=== PATIENT | male | born 1965 | race Asian ===

== ENCOUNTER 2024-09-04 10:51 | Outpatient (AMB) | payer MEDICAID, SELFPAY ==
--- NOTE | 2024-09-04 10:55 | A.OFFVIS_ITS ---
Intake Visit Reasons: right renal cysts Intake Note: New Patient presents for initial visit for right renal cysts Urology Medications: none Blood Thinner: none Hosted Services Analyst Required: Yes Hosted Services Analyst Services: Hosted Services Analyst Offered & Declined Accompanied by: Unknown Allergies No Known Allergies Allergy (Verified 09/04/24 11:28) Medication List - Last Reconciled 09/04/24 by ZELALEM Benton amlodipine 10 mg PO DAILY levothyroxine 50 mcg PO DAILY lisinopril 5 mg PO DAILY HPI Comments Details: bAel is a very pleasant 58-year-old male patient of Dr. Justin was accompanied by his daughter T at today's office visit. He is Rossy speaking data technical lead offered however he declines and would like daughter to provide translation during today's office visit. He has a past medical history of hypothyroidism, tremors, renal cysts, hepatic steatosis, GERD, hypertension, vitamin-D deficiency, alcohol abuse, and chews tobacco. He presents to the office today as a new patient for renal cysts. In discussion with patient's daughter today who provides much of today's history she states he recently had a ultrasound that noted to right renal cysts and PCP recommended urology referral for further assessment evaluation. Rayus report reviewed with the patient and his daughter today. Two right renal cysts. One of the cyst is complex with thick internal septations MRI and or CT renal mass protocol is recommended per radiology report. He reports having had ultrasound due to elevated blood work. He does report noting ongoing back pain. No CVA tenderness noted on exam today. He otherwise denies any bothersome urinary issues. He reports be happy with current voiding parameters. Unable to obtain urine for urinalysis today as patient was unable to void. When asked he denies urinary urgency, urinary frequency, incontinence, nocturia, hematuria, dysuria, foul smelling urine, changes to urinary stream, flank pain, fever, and or chills. He otherwise offers no other issues or concerns at this time. [facility] Medical History Positive QuantiFERON-TB Gold test Other specified hypothyroidism Coarse tremors Renal cyst Hepatitis B core antibody positive Hepatic steatosis GERD (gastroesophageal reflux disease) Hypertension Immune to varicella Vitamin D deficiency Chews tobacco Alcohol abuse Review of Systems Const All systems reviewed & are unremarkable except as noted in HPI and below Physical Exam Const General: cooperative, healthy appearing, comfortable, no acute distress, well developed, alert and awake Orientation/consciousness: patient oriented x3 Limitations: no limitations HEENT Head: Yes normal to inspection, Yes normocephalic and Yes atraumatic Ears: hearing grossly normal bilaterally Eyes General: appearance normal, both eyes and all related structures Neck Neck: Yes normal visual inspection and Yes trachea midline Chest Chest palpation & inspection: normal inspection of the chest Resp Effort & Inspection: normal respiratory effort and able to speak in complete sentences Cardio Rate: regular rate GI Inspection: Yes normal to inspection General: Yes no CVA tenderness Back/Spine/Pelvis Back: no CVA tenderness Skin General skin exam: no rashes or lesions noted Neuro General: patient oriented x3 Extrem General: Yes normal to inspection Psych Appearance: grossly normal and well kempt Mental Status: mental status grossly normal Speech and movement: Normal speech and movement present and Clear speech present Affect: normal affect Attitude: cooperative Thought process: Normal thought process present Thought content: Normal thought content present Insight: Fair insight present (Psych) Judgement: Fair judgement present (Psych) Assessment & Plan Assessment & Plan (1) Complex renal cyst: Code(s): N28.1 - Cyst of kidney, acquired Category: Medical Plan Unable to obtain urine for urinalysis as patient unable to void. Recent ultrasound results reviewed with the patient today; as noted above. Discussed at length potential causes of renal cysts as well as classifications of renal cysts. Patient otherwise denies any bothersome urinary issues. He reports be happy with current voiding parameters. Discussed obtaining further imaging for further assessment evaluation. Will obtain MRI renal mass protocol. Will obtain PSA for surveillance monitoring. Follow-up in 1-3 months with imaging and lab to be completed prior; or sooner with any issues, concerns, and or questions. Orders: Orders AMB Urinalysis Automated Today Z13.9 - Encounter for screening, unspecified MR kidney wo/w con Today N28.1 - Cyst of kidney, acquired Prostate Specific Antigen Today N40.0 - Benign prostatic hyperplasia without lower urinary tract symptoms Patient Instructions: The patient had an opportunity to ask questions regarding the treatment plan. All questions were answered. Physical exam, labs, and imaging were discussed and reviewed in detail. As well as risks, benefits, and discussion of treatment choices. No major barriers to understanding were identified. The patient expressed understanding and agreement with the above treatment plan. The patient was made aware they should contact our office by phone for worsening of their current condition, the appearance of new symptoms, or with any questions or concerns. Compliance is encouraged with any medications and follow up testing that is ordered. It is a privilege to be allowed the opportunity to participate in? your urological care.? Again, if you have any questions or concerns If you have any questions or concerns please do not hesitate to contact me. The office is [phone]. This note is constructed using voice recognition software. While every effort has been made to ensure accuracy fence supervisor errors may have been included. Yours sincerely, ZELALEM Benton Coding Level of Care Code New Pt Level 3 (49844) Diagnoses Complex renal cyst N28.1
== END 2024-09-04 11:21 | disposition home or self-care (01) ==
PROVIDERS: PCP Internal Medicine; Visit Provider Nurse Practitioner Family
DX: N28.1 Cyst of kidney, acquired (principal)
CPT/HCPCS: 99203

== ENCOUNTER → 2024-09-04 10:51 | Outpatient (BNVA) | payer MEDICAID, SELFPAY | PROVIDERS: PCP Internal Medicine; Visit Provider Nurse Practitioner Family | DX: N28.1 Cyst of kidney, acquired (principal) | CPT/HCPCS: 99212 ==

== ENCOUNTER 2024-10-27 16:00 | Outpatient (REF) | payer MEDICAID, SELFPAY ==
--- NOTE | ~2024-10-27 | MR_ITS ---
EXAMINATION: MR ABDOMEN WITHOUT AND WITH CONTRAST CLINICAL INFORMATION: Complex renal cyst. COMPARISON: None available. TECHNIQUE: MR abdomen was performed without and with use of 4.5 mL intravenous not specified gadolinium based contrast. Postcontrast images are performed in multiphase dynamic sequences. Imaging was performed in 3 planes. No reported immediate complications. FINDINGS: Submitted for interpretation on November 30, 2024. Limited by patient's breathing motion artifact. LIVER, GALLBLADDER, AND BILIARY TREE: Liver measures 18 cm. There are few scattered less than 10 mm nonenhancing hyperintense T2 signal in the peripheral of the right hepatic lobe. There is layering isointense T2 nonenhancing signal within the gallbladder lumen. There is no pericholecystic fluid collection or gallbladder wall thickening. There is a focal narrowing at the distal common bile duct measuring 3 mm. No intrahepatic or extrahepatic biliary ductal dilatation. The common bile duct measures 4 mm. PANCREAS: No focal mass. No peripancreatic fluid collection. No main pancreatic ductal dilatation. SPLEEN: 8 cm. No focal mass. ADRENAL GLANDS: No nodular lesion. KIDNEYS AND URETERS: Right kidney: There is a 21 mm, thin septated, nonenhancing, fluid signal characteristic lesion in the medial midportion. There is a 26 mm no septated, nonenhancing fluid signal characteristic lesion in an exophytic anterior lateral aspect of the midportion. There are other few scattered, nonenhancing less than 10 mm fluid signal characteristics and the lower pole. No hydronephrosis. No enhancing lesion in the pararenal compartment. Left kidney: There is a focal, 6 mm hypointense T2 and intrinsic hyperintense T1 nonenhancing lesion in the lateral midportion. There is a 13 mm nonenhancing, no septated fluid signal characteristic lesion in the anterior midportion. There is a 10 mm nonenhancing hyperintense T2 lesion in the anterior upper pole. There are few scattered less than 10 mm fluid signal characteristic lesions. No hydronephrosis. No enhancing mass in the pararenal compartment. GASTROINTESTINAL TRACT: No intestinal obstruction pattern. No ascites. ABDOMINAL WALL: Diastases abdominal rectus muscles in the umbilical region. LYMPH NODES: No lymphadenopathy, retroperitoneum or mesentery. VASCULAR: No aneurysm or dissection, abdominal aorta. OSSEOUS STRUCTURES: Multilevel thoracolumbar spondylosis more conspicuous at L2-3. MR/MR abdomen wo/w con IMPRESSION: Bosniak type II-III renal lesion, right kidney. Recommend follow-up. 10 mm hemorrhagic lesion, left kidney. Recommend follow-up. Probable hepatic cyst. Hepatomegaly. Cholelithiasis/biliary sludge. Questionable choledocholithiasis. Electronically signed by: Bertram Cee MD 11/30/2024 10:36 AM [facility]
[2024-10-27] MEDS: gadobutroL 7.5 ML VIAL IVPUSH (17:08)
== END 2024-10-27 16:01 | disposition home or self-care (01) ==
LOC: HO.MRI 16:00
PROVIDERS: PCP Internal Medicine; Visit Provider Nurse Practitioner Family
DX: N28.1 Cyst of kidney, acquired (principal)
CPT/HCPCS: 74183; A9585

== ENCOUNTER → 2024-10-27 16:50 | Outpatient (BNV) | payer MEDICAID, SELFPAY | PROVIDERS: PCP Internal Medicine; Visit Provider Radiology Diagnostic Radiology | DX: N28.1 Cyst of kidney, acquired (principal) | CPT/HCPCS: 74183 ==

== ENCOUNTER 2024-11-22 13:21 | Outpatient (REF) | payer MEDICAID, SELFPAY ==
[2024-11-22 16:50] LABS: Prostate Specific Antigen 1.79 ng/mL (<0.05-4.0)
== END 2024-11-22 13:22 | disposition home or self-care (01) ==
LOC: HO.HHCL 13:21
PROVIDERS: Visit Provider Nurse Practitioner Family
DX: N40.0 Benign prostatic hyperplasia without lower urinary tract symptoms (principal)
CPT/HCPCS: 36415; 84153

== ENCOUNTER 2024-11-29 16:04 | Outpatient (AMB) | payer MEDICAID, SELFPAY ==
--- NOTE | 2024-11-29 16:04 | A.OFFVIS_ITS ---
Intake Visit Reasons: 2 months PSA Intake Note: Patient presents today for tele visit follow up on: right renal cysts, mri and psa reaults * Imaging Completed: 10/27/24 * PSA: 1.79 Urology Medications: none Blood Thinner: none Monorail Operator Required: Yes Monorail Operator Services: Monorail Operator Offered & Declined Allergies No Known Allergies Allergy (Verified 11/30/24 07:35) Medication List - Last Reconciled 11/30/24 by ANDIE Benton-PHILLIP amlodipine 10 mg PO DAILY levothyroxine 50 mcg PO DAILY lisinopril 5 mg PO DAILY HPI Comments Details: Abel is a very pleasant 59-year-old male patient of Dr. Justin was accompanied by his daughter T during today's video telehealth. 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 He has a past medical history of hyp othyroidism, tremors, renal cysts, hepatic steatosis, GERD, hypertension, vitamin-D deficiency, alcohol abuse, and chews tobacco. He is being followed up on today via video telehealth for follow-up of his renal cysts. Of note, patient was seen approximately 3 months ago as a new patient for renal cysts noted on ultrasound that recommended further imaging with CT or MRI renal mass protocol therefore this was obtained. These results were reviewed with the patient and his daughter today. Bosniak type II-III right renal lesion recommending follow- up. Left kidney with 10 mm hemorrhagic lesion recommending follow-up. PSA 12/15 1.8 He otherwise denies any bothersome urinary issues. He reports be happy with current voiding parameters. When asked he denies urinary urgency, urinary frequency, incontinence, nocturia, hematuria, dysuria, foul smelling urine, changes to urinary stream, flank pain, fever, and or chills. He otherwise offers no other issues or concerns at this time. [facility] Medical History Positive QuantiFERON-TB Gold test Other specified hypothyroidism Coarse tremors Renal cyst Hepatitis B core antibody positive Hepatic steatosis GERD (gastroesophageal reflux disease) Hypertension Immune to varicella Vitamin D deficiency Chews tobacco Alcohol abuse Review of Systems Const All systems reviewed & are unremarkable except as noted in HPI and below Physical Exam Const General: cooperative Resp Effort & Inspection: able to speak in complete sentences Psych Affect: normal affect Attitude: cooperative Insight: Fair insight present (Psych) Judgement: Fair judgement present (Psych) Telehealth Telehealth Telehealth Platform: Belly Ballot Location of provider rendering services: practice address Location of patient: address on file Patient Identification confirmed using: Name, : Yes Telehealth method: video Patient verbally consented to treatment: Yes Patient verbally consented to billing insurance company: Yes Patient informed of any privacy concerns related to visit: Yes Minutes spent on Phone/Video with Pt.: 20 Results Reviewed Results Reviewed: Date of Service: 10/27/24 EXAMINATION: MR ABDOMEN WITHOUT AND WITH CONTRAST FINDINGS: Submitted for interpretation on November 30, 2024. Limited by patient's breathing motion artifact. LIVER, GALLBLADDER, AND BILIARY TREE: Liver measures 18 cm. There are few scattered less than 10 mm nonenhancing hyperintense T2 signal in the peripheral of the right hepatic lobe. There is layering isointense T2 nonenhancing signal within the gallbladder lumen. There is no pericholecystic fluid collection or gallbladder wall thickening. There is a focal narrowing at the distal common bile duct measuring 3 mm. No intrahepatic or extrahepatic biliary ductal dilatation. The common bile duct measures 4 mm. PANCREAS: No focal mass. No peripancreatic fluid collection. No main pancreatic ductal dilatation. SPLEEN: 8 cm. No focal mass. ADRENAL GLANDS: No nodular lesion. KIDNEYS AND URETERS: Right kidney: There is a 21 mm, thin septated, nonenhancing, fluid signal characteristic lesion in the medial midportion. There is a 26 mm no septated, nonenhancing fluid signal characteristic lesion in an exophytic anterior lateral aspect of the midportion. There are other few scattered, nonenhancing less than 10 mm fluid signal characteristics and the lower pole. No hydronephrosis. No enhancing lesion in the pararenal compartment. Left kidney: There is a focal, 6 mm hypointense T2 and intrinsic hyperintense T1 nonenhancing lesion in the lateral midportion. There is a 13 mm nonenhancing, no septated fluid signal characteristic lesion in the anterior midportion. There is a 10 mm nonenhancing hyperintense T2 lesion in the anterior upper pole. There are few scattered less than 10 mm fluid signal characteristic lesions. No hydronephrosis. No enhancing mass in the pararenal compartment. GASTROINTESTINAL TRACT: No intestinal obstruction pattern. No ascites. ABDOMINAL WALL: Diastases abdominal rectus muscles in the umbilical region. LYMPH NODES: No lymphadenopathy, retroperitoneum or mesentery. VASCULAR: No aneurysm or dissection, abdominal aorta. OSSEOUS STRUCTURES: Multilevel thoracolumbar spondylosis more conspicuous at L2-3. IMPRESSION: Bosniak type II-III renal lesion, right kidney. Recommend follow-up. 10 mm hemorrhagic lesion, left kidney. Recommend follow-up. Probable hepatic cyst. Hepatomegaly. Cholelithiasis/biliary sludge. Questionable choledocholithiasis. Assessment & Plan Assessment & Plan (1) Complex renal cyst: Code(s): N28.1 - Cyst of kidney, acquired Category: Medical Plan Recent MRI renal mass protocol results reviewed with the patient and his daughter today. We discussed importance of surveillance monitoring. He currently denies any bothersome urinary issues. He reports be happy with current voiding parameters. Will obtain renal ultrasound in 6 months Follow-up in 6 months with imaging to be completed prior; or sooner with any issues, concerns, and or questions. Orders: Orders US renal BI 6 Months N28.1 - Cyst of kidney, acquired Patient Instructions: The patient had an opportunity to ask questions regarding the treatment plan. All questions were answered. Physical exam, labs, and imaging were discussed and reviewed in detail. As well as risks, benefits, and discussion of treatment choices. No major barriers to understanding were identified. The patient expressed understanding and agreement with the above treatment plan. The patient was made aware they should contact our office by phone for worsening of their current condition, the appearance of new symptoms, or with any questions or concerns. Compliance is encouraged with any medications and follow up testing that is ordered. It is a privilege to be allowed the opportunity to participate in? your urological care.? Again, if you have any questions or concerns If you have any questions or concerns please do not hesitate to contact me. The office is [phone]. This note is constructed using voice recognition software. While every effort has been made to ensure accuracy machine stitcher errors may have been included. Yours sincerely, Macrina Cadet, AMMUNITION ASSEMBLY I LABORER-BC Coding Level of Care Code Tele Est Pt Level 3 (45275) Complex EM visit Add On G2211 Diagnoses Complex renal cyst N28.1
== END 2024-11-29 16:30 | disposition home or self-care (01) ==
LOC: HO.HUSH 16:04
PROVIDERS: PCP Internal Medicine; Visit Provider Nurse Practitioner Family
DX: N28.1 Cyst of kidney, acquired (principal)
CPT/HCPCS: 99213

== ENCOUNTER 2025-05-27 10:52 | Outpatient (REF) | payer MEDICAID, SELFPAY ==
--- NOTE | ~2025-05-27 | US_ITS ---
EXAMINATION: US KIDNEY BILATERAL HISTORY: N28.1 - Cyst of kidney, acquired TECHNIQUE: Real-time grayscale ultrasound imaging of the kidneys was performed and images were reviewed. COMPARISON: Correlation is made with an MRI of the abdomen dated 10/27/2024. FINDINGS: Right kidney: The right kidney measures 10.4 x 5.0 x 4.5 cm. Renal parenchymal echotexture and thickness are normal. There is a simple cyst at the upper pole measuring 2.7 x 2.6 x 2.4 cm. In the interpolar region, there is a multiseptated cystic lesion measuring 1.9 x 1.7 x 2.0 cm, similar in size to the prior MRI scan There is no hydronephrosis or renal calculi. Left Kidney: The left kidney measures 9.9 x 6.0 x 4.9 cm. Renal parenchymal echotexture and thickness are normal. There are no masses. There is no hydronephrosis or renal calculi. US/US renal BI IMPRESSION: 1.9 x 1.7 x 2.0 cm multiseptated cystic lesion in the interpolar region of the right kidney, similar in size to the prior MRI. Continued follow-up is recommended. Electronically signed by: Doug Mendez MD 05/28/2025 10:02 AM EDT
== END 2025-05-27 10:53 | disposition home or self-care (01) ==
LOC: HO.US 10:52
PROVIDERS: PCP Internal Medicine; Visit Provider Nurse Practitioner Family
DX: N28.1 Cyst of kidney, acquired (principal)
CPT/HCPCS: 76775

== ENCOUNTER → 2025-05-27 10:56 | Outpatient (BNV) | payer MEDICAID, SELFPAY | PROVIDERS: PCP Internal Medicine; Visit Provider Radiology Diagnostic Radiology | DX: N28.1 Cyst of kidney, acquired (principal) | CPT/HCPCS: 76775 ==

== ENCOUNTER 2025-06-03 08:33 | Outpatient (AMB) | payer MEDICAID, SELFPAY ==
--- NOTE | 2025-06-03 08:41 | A.OFFVIS_ITS ---
Intake Visit Reasons: 6m followup/US(set) Intake Note: Patient presents today for 6 mo follow up on: right renal cysts, * Imaging Completed: 05/27/25 Urology Medications: none Blood Thinner: none New Account Interviewer Required: Yes New Account Interviewer Services: New Account Interviewer Offered & Declined Accompanied by: Child Allergies No Known Allergies Allergy (Verified 06/03/25 08:42) HPI Comments Details: Abel is a very pleasant 59-year-old male patient of Dr. Justin was accompanied by his son at todays office visit. He is Rossy speaking environmental inspector offered however he declines and would like son to provide translation during today's office visit. He has a past medical history of hypothyroidism, tremors, renal cysts, hepatic steatosis, GERD, hypertension, vitamin-D deficiency, alcohol abuse, and chews tobacco. He presents to the office today For follow-up of his complex renal cysts. Recent renal imaging results were reviewed 06/14 1.9 x 1.7 x 2.0 cm multiseptated cystic lesion in the interpolar region of the right kidney, similar in size to the prior MRI. Continued follow-up is recommended per radiology report. Previous MRI renal mass protocol 11/13 noted Bosniak type II- III right renal lesion recommending follow-up. Left kidney with 10 mm hemorrhagic lesion recommending follow-up. PSA 12/15 1.8 He otherwise denies any bothersome urinary issues. He reports be happy with current voiding parameters. When asked he denies urinary urgency, urinary frequency, incontinence, nocturia, hematuria, dysuria, foul smelling urine, changes to urinary stream, flank pain, fever, and or chills. He otherwise offers no other issues or concerns at this time. [facility] Medical History Positive QuantiFERON-TB Gold test Other specified hypothyroidism Coarse tremors Renal cyst Hepatitis B core antibody positive Hepatic steatosis GERD (gastroesophageal reflux disease) Hypertension Immune to varicella Vitamin D deficiency Chews tobacco Alcohol abuse Review of Systems Const All systems reviewed & are unremarkable except as noted in HPI and below Physical Exam Const General: cooperative, healthy appearing, comfortable, no acute distress, well developed, alert and awake Nutritional Appearance: thin Orientation/consciousness: patient oriented x3 Limitations: no limitations HEENT Head: Yes normal to inspection, Yes normocephalic and Yes atraumatic Ears: hearing grossly normal bilaterally Eyes General: appearance normal, both eyes and all related structures Neck Neck: Yes normal visual inspection and Yes trachea midline Chest Chest palpation & inspection: normal inspection of the chest Resp Effort & Inspection: normal respiratory effort and able to speak in complete sentences Cardio Rate: regular rate GI Inspection: Yes normal to inspection General: Yes no CVA tenderness Back/Spine/Pelvis Back: no CVA tenderness Skin General skin exam: no rashes or lesions noted Neuro General: patient oriented x3 Extrem General: Yes normal to inspection Psych Appearance: grossly normal and well kempt Mental Status: mental status grossly normal Speech and movement: Normal speech and movement present and Clear speech present Affect: normal affect Attitude: cooperative Thought process: Normal thought process present Thought content: Normal thought content present Insight: Fair insight present (Psych) Judgement: Fair judgement present (Psych) Results Reviewed Results Reviewed: Date of Service: 05/27/25 Procedure(s): US renal BI FINDINGS: Right kidney: The right kidney measures 10.4 x 5.0 x 4.5 cm. Renal parenchymal echotexture and thickness are normal. There is a simple cyst at the upper pole measuring 2.7 x 2.6 x 2.4 cm. In the interpolar region, there is a multiseptated cystic lesion measuring 1.9 x 1.7 x 2.0 cm, similar in size to the prior MRI scan There is no hydronephrosis or renal calculi. Left Kidney: The left kidney measures 9.9 x 6.0 x 4.9 cm. Renal parenchymal echotexture and thickness are normal. There are no masses. There is no hydronephrosis or renal calculi. IMPRESSION: 1.9 x 1.7 x 2.0 cm multiseptated cystic lesion in the interpolar region of the right kidney, similar in size to the prior MRI. Continued follow-up is recommended. Assessment & Plan Assessment & Plan (1) Complex renal cyst: Code(s): N28.1 - Cyst of kidney, acquired Category: Medical Plan Recent renal imaging results reviewed with the patient today; we discussed furt her treatment options and risks and benefits of these treatment options. We will continue with surveillance monitoring. He currently denies any bothersome urinary issues. He reports be happy with current voiding parameters. Will obtain MRI renal mass protocol in 6 months Will obtain PSA in 6 months Follow-up in 6 months with imaging and lab to be completed prior; or sooner with any issues, concerns, and or questions. Orders: Orders MR abdomen wo/w con 6 Months N28.1 - Cyst of kidney, acquired AMB Urinalysis Automated Today Z13.9 - Encounter for screening, unspecified Prostate Specific Antigen 6 Months N40.0 - Benign prostatic hyperplasia without lower urinary tract symptoms Patient Instructions: The patient had an opportunity to ask questions regarding the treatment plan. All questions were answered. Physical exam, labs, and imaging were discussed and reviewed in detail. As well as risks, benefits, and discussion of treatment choices. No major barriers to understanding were identified. The patient expressed understanding and agreement with the above treatment plan. The patient was made aware they should contact our office by phone for worsening of their current condition, the appearance of new symptoms, or with any questions or concerns. Compliance is encouraged with any medications and follow up testing that is ordered. It is a privilege to be allowed the opportunity to participate in? your urological care.? Again, if you have any questions or concerns If you have any questions or concerns please do not hesitate to contact me. The office is [phone]. This note is constructed using voice recognition software. While every effort has been made to ensure accuracy factory assembler errors may have been included. Yours sincerely, ZELALEM Benton Coding Level of Care Code Est Pt Level 3 (47056) Complex EM visit Add On G2211 Diagnoses Complex renal cyst N28.1
== END 2025-06-03 09:24 | disposition home or self-care (01) ==
LOC: HO.HUSH 08:34
PROVIDERS: PCP Internal Medicine; Visit Provider Nurse Practitioner Family
DX: N28.1 Cyst of kidney, acquired (principal)
CPT/HCPCS: 99213

== ENCOUNTER → 2025-06-03 08:33 | Outpatient (BNVA) | payer MEDICAID, SELFPAY | PROVIDERS: PCP Internal Medicine; Visit Provider Nurse Practitioner Family | DX: N28.1 Cyst of kidney, acquired (principal) | CPT/HCPCS: 99212 ==